=== PATIENT | female | born 1950 | race Caucasian/White ===

== ENCOUNTER 2020-07-13 14:00 | Outpatient (CLI) | payer MEDICARE ==
--- NOTE | 2020-07-13 14:32 | MMO ---
Bilateral MAMMO Bilat Screen [facility]. CLINICAL HISTORY: Patient is 69 years old and is seen for screening. The patient has no family history of breast cancer. The patient has no personal history of cancer. VIEWS: The views performed were: bilateral craniocaudal with tomosynthesis and bilateral mediolateral oblique with tomosynthesis. FILMS COMPARED: The present examination has been compared to prior imaging studies performed at [facility] on 06/11/2010 and 02/22/2013, and at [facility] on 11/03/1999 and 08/15/2003. This study has been interpreted with the assistance of computer-aided detection. MAMMOGRAM FINDINGS: There are scattered fibroglandular densities. There is a new equal density, irregular mass measuring 13 millimeters with spiculated margins seen in the posterior region of the right breast at 6 o'clock. In the left breast, there are no suspicious masses, calcifications or areas of architectural distortion. IMPRESSION: NEW MASS IN THE RIGHT BREAST REQUIRES ADDITIONAL EVALUATION. AN ULTRASOUND EXAM IS RECOMMENDED. THE RESULTS OF THIS EXAM WERE SENT TO THE PATIENT. ACR BI-RADS Category 0 - Incomplete: Need additional imaging evaluation. [facility] will notify the patient of the need for additional imaging services. MAMMOGRAPHY NOTE: 1. A negative mammogram report should not delay a biopsy if a dominant of clinically suspicious mass is present. 2. Approximately 10% to 15% of breast cancers are not detected by mammography. 3. Adenosis and dense breasts may obscure an underlying neoplasm. Reported by: SHANTA ARDON MD Electonically Signed: [id number]
--- NOTE | 2020-07-13 14:48 | ULT ---
EXAM: US Breast Limited Rt PROVIDED CLINICAL HISTORY: Abnormal screening mammogram COMPARISON: Screening mammogram 07/13/2020 FINDINGS: Limited sonographic interrogation was performed of the right breast in the region of mammographic con cern. There is an irregular hypoechoic shadowing mass at the 5:30 position of the right breast measuring about 1.3 cm maximally. Limited sonographic interrogation of the axilla demonstrates no wolf dence for adenopathy. IMPRESSION: 1.3 cm right breast mass suspicious for malignancy. Ultrasound-guided biopsy is recommended. Results and recommendations discussed with the patient and questions answered. BI-RADS 5 -- highly suggestive of malignancy
--- NOTE | 2020-07-13 16:37 | BD ---
DEXA BONE DENSITY STUDY: Date: 07/13/2020 HISTORY: Postmenopausal. FINDINGS: Lumbar Spine: BMD (g/cm2) L1 0.954 T-Score: -0.3 L2 1.086 T-Score: +0.5 L3 1.075 T-Score: -0.1 L4 1.038 T-Score: -0.2 Total 1.042 T-Score: +0.0 Left Femoral Neck: 0.727 T-Score: -1.1 Total Femur: 0.984 T-Score: +0.3 IMPRESSION: 1. Osteopenia of the left femoral neck. Normal bone mineral density of the lumbar spine. 2. 10 year fracture risk for major osteoporotic fracture is 8.4% and for hip fracture is 0.8%. These fracture probabilities are calculated for an untreated patient. POS: NIGEL
== END 2020-07-13 14:01 | disposition home or self-care (01) ==
LOC: BICMAMMO 14:00
PROVIDERS: ATTEND Family Medicine
DX: Z12.31 Encounter for screening mammogram for malignant neoplasm of breast (principal); Z13.820 Encounter for screening for osteoporosis; M85.852 Other specified disorders of bone density and structure, left thigh; N63.10 Unspecified lump in the right breast, unspecified quadrant
CPT/HCPCS: 77063; 77067; 77080

== ENCOUNTER → 2020-07-14 | Day surgery (SDC) | payer MEDICARE ==
--- NOTE | 2020-07-14 14:42 | MMO ---
FILMS COMPARED: The present examination has been compared to prior imaging studies performed at [facility] on 06/11/2010, 02/22/2013 and 07/13/2020. MAMMOGRAM FINDINGS: There is a new biopsy clip seen in the right breast. IMPRESSION: NEW BIOPSY CLIP IN THE RIGHT BREAST IS CONFIRMED UTILIZING POST PROCEDURE MAMMOGRAM. Reported by: VARGAS JOVEL MD Electonically Signed: [id number]
--- NOTE | 2020-07-14 14:42 | MMO ---
FILMS COMPARED: The present examination has been compared to prior imaging studies performed at [facility] on 06/11/2010, 02/22/2013 and 07/13/2020. MAMMOGRAM FINDINGS: There is a new biopsy clip seen in the right breast. IMPRESSION: NEW BIOPSY CLIP IN THE RIGHT BREAST IS CONFIRMED UTILIZING POST PROCEDURE MAMMOGRAM. Reported by: VARGAS JOVEL MD Electonically Signed: [id number]
--- NOTE | 2020-07-15 07:22 | ULT ---
Exam: Right breast biopsy with ultrasound guidance. HISTORY: Right breast mass. COMPARISON: 07/13/2020. FINDINGS: Successful right breast biopsy. Total of four 14-gauge core biopsy samples were performed. Lesional t issue was placed directly in Formalin. TECHNIQUE: Consent obtained to perform a right breast biopsy with ultrasound guidance. Right breast mass was rosalina ntified. Skin was prepped and draped in a sterile fashion. 1% lidocaine, buffered with sodium bicarbonate was used for local anesthesia. Under ultrasound guidance, a 14-gauge biopsy needle was us ed to obtain four separate samples. Postbiopsy clip was placed. Patient tolerated the procedure well. No immediate or postprocedural complications. Post procedure mammograms performed. Clip is adjacent to the lesion. IMPRESSION: Successful right breast biopsy under ultrasound guidance. Final pathologic diagnosis pending. Transcribed Date/Time: 07/14/2020 3:01 PM
== END ==
LOC: BICULT 12:41
PROVIDERS: ATTEND Family Medicine
PROC: 0H9T3ZX Drainage of Right Breast, Percutaneous Approach, Diagnostic (ICD-10-PCS; principal; 2020-07-14)
DX: C50.311 Malignant neoplasm of lower-inner quadrant of right female breast (principal)
CPT/HCPCS: 19083; 88305